=== PATIENT | male | born 1975 | race Caucasian/White ===

== ENCOUNTER 2016-07-28 06:29 | Observation (INO) ==
--- NOTE | 2016-07-28 09:14 | Internal Med History&Physical ---
Date of Encounter: 07/28/16 Time of Encounter: 09:10 Assessment and Plan (1) NSTEMI (non-ST elevated myocardial infarction) Current visit: Yes Status: Acute Presented with chest pain. Troponin done at 0.7. EKG no ischemic changes. history of heart attack or stent placement. Status post aspirin, heparin drip and nitroglycerin drip. Cardiology consult, trend troponin strong family h/o , may need cardiac cath. will keep nPO continue asa, BB , monitor BP. (2) HTN (hypertension) Current visit: Yes Status: Acute off BP meds for ~1 yr, he says he was taken off his BP meds by his PCP but restarted 1 mth ago,however he was not able to fill it as it never went through the pharmacy he says will restart BP meds monitor BP> he says at home it was 200s systolic. Qualifiers: Hypertension type: essential hypertension Qualified Code(s): I10 - Essential (primary) hypertension (3) Smoking Current visit: Yes Status: Acute will start nicotine patch encouraged to quit and agrees. Internal Medicine - H&P: HPI Chief complaint: chest pain Admitted From: Hospital to Hospital Transfer Plans for Post Hospital Care: Home History of present illness: Mr. Jaramillo is a 41 year old male with PMH of HTn not taking his medication for last yr was transferred from [facility] for chest pain that started yesterday. He says the chest pain started once he woke up yesterday and never went away. He describes it as midsternal chest pain initially nonradiating, complains of mild shortness of breath and diaphoresis. Later he said the pain moved up to his neck and his left arm. No relieving factors, no nausea or vomiting. He says he checked his blood pressure yesterday when he started having chest pain and he found that the systolic was in 200. That is when he called 911. He was taken to [facility], troponin there was noted to be 0.7, EKG shows no ischemic changes and from there he was transferred here for possible NSTEMI. He was given aspirin, started on heparin drip and nitroglycerin drip. He says the chest pain got better once the started nitroglycerin drip at [facility], however to drip was stopped during the transfer. His family history is positive for heart attack in his father and his father's brother. Denies any history of heart attacks or stent placement in the past. Past Med Surg Social Fam HX - Past Medical History Medical history: arthritis, hypertension Psychiatric history: ADHD, bipolar - Social History Smoking Status: Current every day smoker Alcohol use: none Drug use: none Internal Medicine - H&P: Meds Albuterol Sulfate [Albuterol Inhaler] 2 puff IH Q4HR PRN 07/18/15 [History] Atenolol [Tenormin] 50 mg PO DAILY 07/18/15 [History] Dextroamphetamine/Amphetamine [Adderall 20 mg Tablet] 20 mg PO QPM 07/18/15 [ History] Dextroamphetamine/Amphetamine [Adderall 20 mg Tablet] 40 mg PO QAM 07/18/15 [ History] FLUoxetine HCl [PROzac] 40 mg PO DAILY 07/18/15 [History] Gabapentin [Neurontin] 1,200 mg PO BID 07/18/15 [History] HYDROcodone/Acet 10/325 mg [[place] 10-325 mg] 1 tab PO Q6HR PRN 07/18/15 [History ] [place] Carbonate ER [Lithobid] 600 mg PO HS 07/18/15 [History] Pantoprazole Sodium [Protonix] 40 mg PO DAILY 07/18/15 [History] Promethazine [Phenergan] 25 mg PO Q8H PRN 07/18/15 [History] Ranitidine HCl [Zantac] 150 mg PO BID 07/18/15 [History] Sucralfate [Carafate] 1 gm PO QID 07/18/15 [History] Tamsulosin [Flomax] 0.4 mg PO DAILY 07/18/15 [History] Trazodone HCl [TraZODone] 100 mg PO HS 07/18/15 [History] diazePAM [Valium] 10 mg PO TID PRN 07/18/15 [History] Allergies fluconazole [From Diflucan] Allergy (Unverified 04/23/15 12:49) Hives valsartan Allergy (Unverified 04/23/15 12:49) Dizziness All Systems PM: A 10-system review of systems was performed and is negative for pertinent findings except as documented above in the HPI. - Constitutional Constitutional: no chills, no fever(s), no night sweats - EENT Eyes: no change in vision, no discharge, no pain, no photophobia Ears: no ear discharge, no ear pain, no tinnitus Nose, mouth and throat: no dysphagia, no nasal discharge, no neck pain, no sore throat - Cardiovascular Cardiovascular ROS IM: chest pain, diaphoresis - Respiratory Respiratory: no cough, no dyspnea, no wheezing, no excessive phlegm production - Gastrointestinal Gastrointestinal: no abdominal pain, no diarrhea, no hematemesis, no hematochezia, no melena, no nausea, no vomiting - Musculoskeletal Musculoskeletal ROS IM: no numbness, no tingling - Constitutional General appearance: Present: A&O X 3, no acute distress Exam: Neck supple Chest bilaterally clear, no added sounds. CVS S1-S2, no murmurs rubs or gallops. Abdomen soft, nontender, pulse sounds are present. Extremities no edema. Neuro alert awake and oriented 3, no focal neuro deficits. Skin dry, no rashes. - Head Head exam: Present: atraumatic, normocephalic - Eye Eye exam: Present: PERRL, conjuntiva pink, sclera anicteric Pupils: Present: PERRL - Neck Neck exam general surgery: Present: supple, trachea midline. Absent: lymphadenopathy - Respiratory Respiratory exam: Present: CTAB. Absent: accessory muscle use, rales, rhonchi, wheezes - Cardiovascular Cardiovascular exam: Present: RRR, +S1, +S2. Absent: diastolic murmur, gallop, rubs, systolic murmur - GI/Abdominal GI/Abdominal exam: Present: normal bowel sounds, soft, no peritoneal signs. Absent: distended, tenderness - Extremities Exam Extremities exam: Present: warm, radial pulses palpable and symetrical. Absent : calf tenderness, cyanotic, pedal edema - Neurological Exam Neurological exam: Present: CN II-XII intact, oriented X3, no focal deficits. Absent: pronater drift, facial droop, speech deficit - Skin Skin exam: Present: dry, intact
[2016-07-28] MEDS ORDERED: Nitroglycerin 25 MG/250 ML INFUS..BTL IVC SCH (09:15)
[2016-07-28] MEDS ORDERED: Heparin 25,000 UNIT/500 ML D5W 25,000 UNIT/500 ML MLS IVC SCH (09:15)
[2016-07-28 09:34] LABS: Hematocrit 50.3 % (37.5-50.1); Mean Corpuscular HGB Conc 31.8 g/dL (31.6-35.5); Mean Corpuscular Volume 91.3 fL (83.0-100.0); Mean Platelet Volume 10.7 fL (9.4-12.4); Platelet Count 179 K/mcL (140-400); Red Blood Count 5.51 M/mcL (4.19-5.50); Red Cell Distribution Width 14.4 % (11.5-14.5)
[2016-07-28 09:40] LABS: INR 1.1
[2016-07-28 10:01] LABS: Activated Partial Thrombo Time 40.9 Seconds (26.0-36.0)
[2016-07-28] MEDS ORDERED: *HR* Morphine 2 MG/ML SYRINGE IVP PRN (10:23)
[2016-07-28] MEDS ORDERED: *HR* Heparin 5,000 UNIT/ML VIAL IVP PRN ×2 (10:25)
[2016-07-28] MEDS ORDERED: *HR* Heparin 10,000 UNIT/10 ML VIAL ONE (10:41)
[2016-07-28] MEDS ORDERED: 0.9 % Sodium Chloride 1,000 ML ONE ×2 (10:41→11:07)
[2016-07-28] MEDS ORDERED: Heparin 1,000 UNITS/500 mL NS 500 ML ONE (10:41)
[2016-07-28] MEDS ORDERED: Nitroglycerin 1,000 MCG/10 ML VIAL IV ONE (10:41)
--- NOTE | 2016-07-28 10:55 | Pre-Sedation Evaluation ---
Pre-sedation evaluation - Pre-sedation checklist Date of procedure: 07/28/16 Procedure: [facility] Recent Vitals: Last Vital Signs Temp 98.2 F 07/28/16 09:02 Pulse 62 07/28/16 09:02 Resp 18 07/28/16 09:02 BP 156/98 07/28/16 09:02 Pulse Ox 97 07/28/16 09:02 H&P (including ROS) documented in medical record: Yes Previous reaction to sedatives/anesthetics: No Dietary Status: NPO after Midnight Airway Assessment: Patient can open mouth completely, TMJ function normal, Micrognathia (under-bite, receding chin) absent, Neck with adequate range of motion Dentition: No loose teeth or bridges Possible difficult airway: Yes If Yes;: Morbid obesity ASA Classification *see protocol: CLASS II-Mild systemic disease Plan of Care: Pt appropriate candidate for procedure/moderate/conscious sedation , Risks/benefits of procedure/sedation discussed w/ patient/family
[2016-07-28] MEDS ORDERED: *HR* FentaNYL (PF) 100 MCG/2 ML VIAL ONE (11:06)
[2016-07-28] MEDS ORDERED: *HR* Midazolam HCl 2 MG/2 ML VIAL ONE ×2 (11:06→11:26)
[2016-07-28] MEDS ORDERED: *HR* Bivalirudin 250 MG VIAL IVC ONE ×2 (11:34→11:43)
[2016-07-28] MEDS ORDERED: *HR* Ticagrelor 90 MG TABLET ONE (11:52)
--- NOTE | 2016-07-28 12:13 | Cardiology Consult Note ---
Date of Encounter: 07/28/16 Time of Encounter: 10:00 Assessment and Plan (1) NSTEMI (non-ST elevated myocardial infarction) Current Visit: Yes Status: Acute Per cardiology: -No known history of CAD. -Troponin at [place] 0.745. -ECG with no ischemic changes. -Having active chest pain rates 7/10. States mid-sternal radiating to left arm. -On heparin drip and nitro drip. -Given asa and nitro per EMS. -PLan for urgent LHC. Discussed risks versus benefits of LHC. Patient states understanding and agrees with LHC. DIscussed and reviewed with Dr.Jennifer Johnston and . OF note, hemoglobin and creatinine within normal limits at [place]. -Will start asa tomorrow. -Will starts statin and beta tanisha. -Will order echocardiogram. -Further recommendations pending LHC and echo. (2) Hyperlipidemia Current Visit: Yes Status: Chronic Per cardiology: -REcent lipid panel and LFTS drawn by PCP. -Triglycerides 109, LDL 140, cholesterol 197, HDL 35 from 06/2016. -Pateint states not on any lipid lowering agents. -Of note AST and SKILLED NURSING within normal limits from 06/2016. -Will start atorvastatin. Qualifiers: Hyperlipidemia type: mixed hyperlipidemia Qualified Code(s): E78.2 - Mixed hyperlipidemia (3) HTN (hypertension) Current Visit: Yes Status: Chronic Per cardiology: -KNown history of HTN. -Atenolol started per primary service. -Patient states he no longer takes medications at home for HTN. -Will switch atenolol to carvedilol. -Will continue to monitor. -Can consider further titration of anti-hypertensives. Qualifiers: Hypertension type: essential hypertension Qualified Code(s): I10 - Essential (primary) hypertension (4) Smoking Current Visit: Yes Status: Chronic Per cardiology: -KNown history of tobacco abuse. -States has smoked 0.5 ppd for 25 years. -I spent 3-5 minutes reviewing smoking cessation education with patient. Discussion w patient/family: The assessment and plan as outlined above was discussed with the patient and/or family members who expressed understanding and agreement. All questions were answered. Thank you for involving us in the care of your patient. Please call with any questions. Discussed and reviewed with Dr.Jennifer Johnston and . History of Present Illness Consult date: 07/28/16 Requesting physician: Yeny Daniel Consult reason: NSTEMI Chief complaint: chest pain History of present illness: Mr. Jaramillo is a 41 year old male with a relevant past medical history of HTN, however states not currently on anti-hypertensives, bipolar disorder. Patient report family history of CAD with father dying at age 49 from [place]. Patient reports yesterday he was walking down his stair, when he had midsternal chest pain. Patient states it radiated down left arm. Patient denies aggervating factors. Patient states pain was relieved with nitro when he presented to [facility]. Patient states he did not present sooner, since he thought it was indigestion. Patient states he is having active chest pain, rates 7/10. States is midsternal and radiating to left arm. Troponin at [place] noted to be 0.745. Patient currently on nitro and heparin drip. Past Med Surg Social Fam HX - Past Medical History Attestation: Yes The following information was validated with the patient. Source: patient, old records reviewed, obtained from family Medical history: arthritis, hypertension Psychiatric history: ADHD, bipolar - Social History Smoking Status: Current every day smoker Alcohol use: none Drug use: none Medications and Allergies Albuterol Sulfate [Albuterol Inhaler] 2 puff IH Q4HR PRN 07/18/15 [History] FLUoxetine HCl [PROzac] 40 mg PO DAILY 07/18/15 [History] Gabapentin [Neurontin] 1,200 mg PO TID 07/18/15 [History] HYDROcodone/Acet 10/325 mg [[place] 10-325 mg] 1 tab PO Q6HR PRN 07/18/15 [History ] [place] Carbonate ER [Lithobid] 600 mg PO BID 07/18/15 [History] Pantoprazole Sodium [Protonix] 40 mg PO DAILY 07/18/15 [History] Ranitidine HCl [Zantac] 150 mg PO BID 07/18/15 [History] Sucralfate [Carafate] 1 gm PO QID 07/18/15 [History] Tamsulosin [Flomax] 0.4 mg PO DAILY 07/18/15 [History] Trazodone HCl [TraZODone] 200 mg PO HS 07/18/15 [History] Nicotine Patch [Nicoderm] 21 mg TD DAILY 07/28/16 [History] Allergies fluconazole [From Diflucan] Allergy (Unverified 04/23/15 12:49) Hives valsartan Allergy (Unverified 04/23/15 12:49) Dizziness All Systems Review: A 10-system review of systems was performed and is negative for pertinent findings except as documented above in the HPI. - Cardiovascular Cardiovascular: as per HPI, chest pain with exertion Physical Examination Vital Signs, Last 4 Hours Temp Pulse Resp BP Pulse Ox 07/28/16 09:02 98.2 F 62 18 156/98 97 General: Conversant, No Apparent Distress HEENT: Atraumatic, Normocephaly, Mucus Membranes Moist Neck: No JVD, Normal carotid pulses Cardiac: Reg Rate and Rhythm, Normal S1 and S2, No Murmur Lungs: Normal Breath Sounds, No Wheeze, Rales, Rhonchi Neuro: Alert and responsive, No focal deficits noted Abdomen: Soft, Non-Tender Skin: No rashes noted on visualized skin Musculoskeletal: Other (Chest wall tenderness noted with palpation. ) Extremities: No Clubbing, No Cyanosis, No Edema, Normal Pulses Results 07/28/16 09:26 Lab Results Active Medications Acetaminophen (Tylenol) 650 mg PO Q6HR PRN PRN Reason: Mild Pain Stop: 01/27/17 12:15 Aspirin (Aspirin) 81 mg PO DAILY [facility] Stop: 01/28/17 09:01 Atorvastatin Calcium (Lipitor) 80 mg PO HS [facility] Stop: 01/27/17 21:01 Carvedilol (Coreg) 6.25 mg PO BIDWM ANETA PRN Reason: Protocol Stop: 01/27/17 17:01 Clopidogrel Bisulfate (Plavix) 75 mg PO DAILY [facility] Stop: 01/28/17 09:01 Sodium Chloride (0.9 % Sodium Chloride) 1,000 mls @ 100 mls/hr IVC .Q10H ANETA Stop: 07/28/16 16:15 Rosalie Carbonate (Lithobid) 600 mg PO HS [facility] Stop: 01/27/17 21:01 Morphine Sulfate (Morphine Sulfate) 2 mg IVP Q4HR PRN PRN Reason: Chest Pain Stop: 01/27/17 10:24 Nicotine (Nicoderm) 14 mg TD DAILY [facility] PRN Reason: Protocol Stop: 01/27/17 09:16 Nitroglycerin (Nitroglycerin) 0.4 mg SL Q5MIN PRN PRN Reason: Chest Pain Stop: 01/27/17 12:15 Omeprazole (Prilosec) 20 mg PO DAILY [facility] Stop: 01/28/17 09:01 Ondansetron HCl (Zofran) 4 mg IVP Q6HR PRN; Protocol PRN Reason: Nausea And Vomiting Stop: 01/27/17 12:15 Sucralfate (Carafate) 1 gm PO QID ANETA Stop: 01/27/17 13:01 Tamsulosin HCl (Flomax) 0.4 mg PO DAILY ANETA PRN Reason: Protocol Stop: 01/28/17 09:01 Trazodone HCl (Trazodone) 100 mg PO HS [facility] Stop: 01/27/17 21:01 Laboratory Tests 07/28/16 07/28/16 09:26 09:26 WBC 11.5 H Troponin I 0.99 H* - Imaging and Cardiology Echo: pending Cardiac cath: pending - EKG Interpretation EKG results cardiology: personally reviewed (ECG reviewed with SR.) Consult Discharge Plan - Plan Referrals: Musa Johnston CNP [Advanced Practice Nurse] - (office will call patient at home with follow up appointment, do to office makes their own appointments) Jameel Cornell DO [Primary Care Provider] -
[2016-07-28] MEDS ORDERED: Acetaminophen 325 MG TABLET PO PRN (12:14)
[2016-07-28] MEDS ORDERED: Nitroglycerin 0.4 MG TAB.SUBL SL PRN (12:14)
[2016-07-28] MEDS ORDERED: Ondansetron 4 MG/2 ML VIAL IVP PRN (12:14)
[2016-07-28] MEDS ORDERED: 0.9 % Sodium Chloride 1,000 ML IVC SCH (12:15)
--- NOTE | 2016-07-28 12:26 | Invasive Diagnostic Lab Proc ---
Name: Andrew Jaramillo Date of Study: 07/28/2016 Date: 1975 Ht: 70.1in Medical Record#: [id number] Age: 41 Wt: 279.99lb Gender: Male BSA: 2.41 Order #: [id number] BMI: 40.08 Physicians Procedure Physician: Ksenia Johnston MD, [facility] Referring MD: Referring MD: Staff Name Position Time In Rena Apple RN Monitor 11:09 AM Renetta Steele RN Multigraph Operator 11:09 AM Miranda Hudson RN Monitor 11:09 AM Jackie Hill RT (R) Scrub 11:09 AM Indications Indication Non-Stemi Procedures Performed Procedure L HRT ARTERY/VENTRICLE ANGIO PRQ CARD TELMA STENT W/ANGIO 1 VSL Pre-Procedure Checklist Informed consent is complete signed and on chart. H\\T\\P is on chart. ID band is on and ID verified with patient. Patient NPO for procedure The procedure was described for the patient and questions were answered. Blood Pressure: 156/98 ECG is on chart. Rhythm: NSR Plan of Care Patient will tolerate the procedure without complications. Adequate level of comfort will be maintained. Hemodynamics will remain stable Patient will recover from procedure without complications. Respiratory function will be maintained. Cardiac rhythm will remain stable. Patient temperature will be maintained. Patient and/or family have verbalized understanding of the procedure. Patient Education Chief Complaint/Reason for Test: Cardiac Cath Developmental Category: Adult (18-64 years) Developmentally Appropriate for Age: Yes Learning Barriers: None Education Needs: Procedure Education Method: Verbal Information Taught: Cardiac Cath Educational Evaluation: Able to repeat information Intravenous Access Time IV Size Location DC'd Fluid/Drip Rate Units RN 11:11 AM 20g 1 1/4" Patent On Arrival Lt Wrist 11:11 AM 20g 1 1/4" Patent On Arrival Lt Arm 0.9NaCl 25 ml/hr Renetta Steele RN Allergies fluconazole valsartan Vital Signs Time BP (mmHg) HR (bpm) O2 Sat. RR (bpm) LOC 11:12 AM 156 / 98 62 97 % 18 5 = Fully awake and oriented or at pre-proc level 11:16 AM / % 5 = Fully awake and oriented or at pre-proc level 11:22 AM / % 4 = Oriented but drowsy 11:22 AM / % 4 = Oriented but drowsy 11:37 AM / % 4 = Oriented but drowsy 11:14 AM 147 / 100 66 98 % 17 11:18 AM 153 / 98 69 98 % 24 11:23 AM 157 / 97 67 97 % 25 11:28 AM 142 / 103 68 96 % 23 11:33 AM 155 / 98 83 96 % 17 11:38 AM 155 / 90 69 96 % 11:43 AM 144 / 93 67 96 % 14 11:49 AM 145 / 93 71 95 % 11:53 AM 137 / 82 70 96 % 20 11:59 AM 127 / 70 67 95 % 19 Procedural Medications Time Medication Dose Units Method Given By 11:16 AM Oxygen 2 L/min nasal cannula Renetta Steele RN 11:16 AM Versed 2 mg Intravenous Renetta Steele RN 11:16 AM Fentanyl 50 mcg Intravenous Renetta Steele RN 11:22 AM Benadryl 25 mg Intravenous Renetta Steele RN 11:27 AM Versed 1 mg Intravenous Renetta Steele RN 11:27 AM Fentanyl 25 mcg Intravenous Renetta Steele RN 11:29 AM Lidocaine 2% 19 ml Subcutaneous Ksenia Johnston MD, FACC 11:38 AM Benadryl 25 mg Intravenous Renetta Steele RN 11:38 AM Angiomax 0.75mg/kg bolus: 19 ml Intravenous Renetta Steele RN 11:38 AM Angiomax 1.75mg/kg/hr: 44.5 ml/hr Intravenous Renetta Steele RN 11:50 AM Nitroglycerin 200 mcg Intracoronary Ksenia Johnston MD, FACC 11:57 AM Nitroglycerin 200 mcg Intracoronary Ksenia Johnston MD, FACC 11:57 AM Nitroglycerin 200 mcg Intracoronary Ksenia Johnston MD, FACC 12:01 PM Brilinta 180 mg Orally Renetta Steele RN ASA Classification: CLASS II- Mild systemic disease (i.e. well-controlled diabetes, hypertension, asthma, cigarette smoking) Shanique Score Preprocedure Postprocedure Activity 2- Moves 4 extremities sustained head lift Activity 2- Moves 4 extremities sustained head lift Circulation 2- SBP +/= 20 points of pre-anesthetic level Circulation 2- SBP +/= 20 points of pre-anesthetic level Consciousness 2- Awake and alert oriented x 3 Consciousness 2- Awake and alert oriented x 3 O2 Saturation 2- Able to maintain O2 satruation of 92% on room air O2 Saturation 2- Able to maintain O2 satruation of 92% on room air Respiratory 2- Able to deep breathe and cough well Respiratory 2- Able to deep breathe and cough well Total Score 10 Total Score 10 Contrast Agent: Isovue Diagnostic Contrast: 208 ml Total Contrast: 208 ml Fluoro Dose: 1766 mGy Procedure Log Time Note Enter By 10:53 AM CathStat 11:08 AM Pt arrived to cardiovascular lab director 2 at 11:08 [facility] 11:08 AM Physician arrived :08 [facility] 11:08 AM ASA Class CLASS II- Mild systemic disease (i.e. well-controlled diabetes, hypertension, asthma, cigarette smoking) [facility] :08 AM Meet and greet completed [facility] 11:08 AM Sign in performed according to hospital policy. [facility] :08 Procedure start 11:08 [facility] :08 AM Patient charges- Angio tray pack, Navilyst 3mm J, Pulse Oximetry and ACIST tubing and transducer [facility] :08 AM Case Delayed No [facility] 11:09 AM Rena Apple RN Position: Monitor Time in: : [facility] 11:09 AM Renetta Steele RN Position: Multigraph Operator Time in: : [facility] 11:09 AM Miranda Hudson RN Position: Monitor Time in: : [facility] 11:09 AM Jackie Hill RT (R) Position: Scrub Time in: 11:09 [facility] 11:12 AM Vitals capture started with the following parameters, Patient=Adult, Interval=5 min, Initial Sobojoha=189 mmHg, Deflation Rate=5 mmHg, Cuff placed on Right Arm 11:13 AM Recorded ECG: HR=63 Condition=Condition 1 11:14 AM HR=66 bpm, BPQS=592/100 mmhg, SpO2=98.0 %, Resp=17 B/min, Comment=NSR 11:16 AM Hair removed from procedure site in procedure lab using clippers. Bilateral groin prepped with Chloraprep by Miranda Hudson RN, safety strap applied then patient was draped. Skin intact. [facility] :16 Time: 11:16 Patient comfortable and pain free: Yes [facility] :16 AM Time: :16LOC: 5 = Fully awake and oriented or at pre-proc level [facility] 11:16 AM Clinical Presentation: Non-STEMI [facility] 11:16 AM Time: 11:16 Oxygen on at 2 L/min per nasal cannula by Renetta Steele RN [facility] 11:16 AM Time: 11:16 Versed 2 mg Intravenous Given by Renetta Steele RN [facility] 11:16 AM Time: 11:16 Fentanyl 50 mcg Intravenous Given by Renetta Steele RN [facility] 11:18 AM HR=69 bpm, BTGV=169/98 mmhg, SpO2=98.0 %, Resp=24 B/min, Comment=NSR 11: AM Time: : Patient comfortable and pain free: Yes scoates 11: AM Time: :LOC: 4 = Oriented but drowsy scoates : AM Time: Benadryl 25 mg Intravenous Given by Renetta Steele RN scoatevasiliy 11: AM HR=67 bpm, UAAP=712/97 mmhg, SpO2=97.0 %, Resp=25 B/min, Comment=NSR 11 AM Time out performed according to hospital policy scoates 11: AM Pressure channel 1 zeroed. 11: AM Time: : Versed 1 mg Intravenous Given by Renetta Steele RNoatevasiliy : AM Time: : Fentanyl 25 mcg Intravenous Given by Renetta Steele RN scoateavsiliy 11: AM HR=68 bpm, HSFB=807/103 mmhg, SpO2=96.0 %, Resp=23 B/min, Comment=NSR 11 AM Time: 19 ml Lidocaine 2% to right groin Subcutaneous Given by Ksenia Johnston MD, [facility] scoates 11:29 AM Access obtained by percutaneous puncture. 5Fr 10cm Terumo Birney sheath placed in right Femoral artery. [id number] scoates 11:29 AM 5Fr FL 4 catheter inserted over the wire DN scoates 11:30 AM Recorded Pressure: Ao, HR=72, Condition=Condition 1 (Aorta) Ao 149/111/130 11:30 AM LCA angiography performed in multiple views. scoates 11:32 AM Catheter removed scoates 11:32 AM 5Fr FR 4 catheter inserted over the wire DN scoates 11:33 AM HR=83 bpm, KHOU=421/98 mmhg, SpO2=96.0 %, Resp=17 B/min, Comment=NSR 11:33 AM RCA angiography performed in multiple views. scoates 11:33 AM Recorded Pressure: Ao, HR=82, Condition=Condition 1 (Aorta) Ao 159/126/143 11:34 AM Catheter removed scoates 11:34 AM Coronary Dominance: right scoates 11:35 AM 5Fr Pigtail catheter inserted over the wire DNC scoates 11:35 AM Catheter selectively placed in left ventricle scoates 11:35 AM Bolus angiogram of left Ventricle complete: 8 ml/sec for a total of 24 mls scoates 11:36 AM Pressure channel 1 zeroed. 11:36 AM Recorded Pressure: LV, HR=77, Condition=Condition 1 (Left Ventricle) LV 126/20/21 11:36 AM Recorded Pressure: LV, Ao, HR=76, Condition=Condition 1 (Left Ventricle) LV 130/39/45, (Aorta) Ao 137/102/120 11:37 AM Time: 11:22LOC: 4 = Oriented but drowsy scoates 11:37 AM Time: 11:22 Patient comfortable and pain free: Yes scoates 11:38 AM Time: 11:38 Benadryl 25 mg Intravenous Given by Renetta Steele RN scoates 11:38 AM PCI Status Urgent scoates 11:38 AM PCI Indication: PCI for high risk Non-STEMI or unstable angina scoates 11:38 AM Sheath exchanged for a 6 Fr 11 cm Cordis Nathalia sheath [id number] scoates 11:38 AM HR=69 bpm, FQIC=499/90 mmhg, SpO2=96.0 %, Comment=NSR 11:38 AM Time: 11:38 Angiomax 0.75mg/kg bolus: 19 ml Intravenous Given by Renetta Steele RN Blandon pump scoates 11:39 AM Time: 11:38 Angiomax 1.75mg/kg/hr: 44.5 ml/hr Intravenous Given by Renetta Steele RN Blandon pump scoates 11:39 AM Lesion found in Ramus. Pre Stenosis: 100 Pre ESTEFANÍA Flow: 0: No Flow/No perfusion scoates 11:39 AM 6Fr XB LAD 3.5 cordis guide catheter was used to cannulate the PCI vessel successfully. reused? No scoates 11:40 AM .014 Prowater 180cm guide wire across target lesion- successful. reused? No Positioned in the Ramus scoates 11:40 AM Recorded Pressure: Ao, HR=71, Condition=Condition 1 (Aorta) Ao 153/89/117 11:40 AM .014 PT Graphix 182cm guide wire across target lesion- successful. reused? No positioned in the LAD scoates 11:43 AM Recorded Pressure: Ao, HR=68, Condition=Condition 1 (Aorta) Ao 146/91/117 11:43 AM HR=67 bpm, OAWW=325/93 mmhg, SpO2=96.0 %, Resp=14 B/min, Comment=NSR 11:44 AM 2.0 mm x 15 mm Emerge Monorail balloon across target lesion- successful. reused? No scoates 11:45 AM Ramus with 100% stenosis. If graft is supplying this area, 0 % stenosis scoates 11:48 AM Recorded Pressure: Ao, HR=67, Condition=Condition 1 (Aorta) Ao 139/100/120 11:48 AM Balloon inflated @ 12 kacie for 10 seconds scoates 11:49 AM HR=71 bpm, FUJY=647/93 mmhg, SpO2=95.0 %, Comment=NSR 11:49 AM Balloon catheter removed intact. scoates 11:50 AM Time: 11:50 Nitroglycerin 200 mcg Intracoronary Given by Ksenia Johnston MD, FACC scoates 11:52 AM Time: 11:37 Patient comfortable and pain free: Yes scoates 11:52 AM Time: 11:37LOC: 4 = Oriented but drowsy scoates 11:53 AM 2.25mm x 16mm Synergy drug-eluting stent across target lesion- successful Lot #[id number] scoates 11:53 AM HR=70 bpm, ENRH=836/82 mmhg, SpO2=96.0 %, Resp=20 B/min, Comment=NSR 11:54 AM Recorded Pressure: Ao, HR=67, Condition=Condition 1 (Aorta) Ao 117/91/105 11:54 AM Stent deployed @ 12 kacie for 30 seconds scoates 11:56 AM Guide wire - PT graphix removed intact. scoates 11:57 AM Time: 11:57 Nitroglycerin 200 mcg Intracoronary Given by Ksenia Johnston MD, FACC scoates 11:58 AM Time: 11:57 Nitroglycerin 200 mcg Intracoronary Given by Ksenia Johnston MD, [facility] scoates 11:59 AM HR=67 bpm, GYON=102/70 mmhg, SpO2=95.0 %, Resp=19 B/min, Comment=NSR 11:59 AM Guide wire- prowater removed intact. scoates 11:59 AM Stent delivery system removed intact. scoates 12:00 PM Bolus angiogram of right Femoral complete: 4 ml/sec for a total of 7 mls scoates 12:01 PM Time: 12:01 Brilinta 180 mg Orally Given by Renetta Steele RN scoates 12:03 PM Lesion found in LMCA. Pre Stenosis: 15 Pre ESTEFANÍA Flow: scoates 12:03 PM Lesion found in Proximal LAD. Pre Stenosis: 40 Pre ESTEFANÍA Flow: scoates 12:03 PM Lesion found in Mid LAD. Pre Stenosis: 30 Pre ESTEFANÍA Flow: scoates 12:04 PM Lesion found in Distal LAD. Pre Stenosis: 30 Pre ESTEFANÍA Flow: scoates 12:05 PM Procedure completed at 12:05 scoates 12:05 PM Sign out completed: Radiation Dose 1766 mGy Fluoro Time: 8.6 Isovue 370 - 500ml contrast 208 ml given by Ksenia Johnston MD, [facility]. Complications: NoneCardiac Rehab Consult needed: YesConfirmed administered medications: Yes scoates 12:06 PM Isovue 370 - 500ml,1 Bottle(s) used. scoates 12:06 PM Sheath left in place to be pulled on floor/holding area scoates 12:06 PM Post ECG NSR scoates 12:06 PM Post Blood Pressure 136/82 scoates 12:07 PM 12:07 Post Pulses Bilateral DP \\T\\ PT 2+ scoates 12:07 PM Information taught Cardiac Cath and PCI scoates 12:07 PM Education needs Procedure, Plan of Care, and Responsibilities of Patient in Care scoates 12:07 PM Learning barriers :None scoates 12:07 PM Education Methods Verbal scoates 12:07 PM Education evaluation Able to repeat information scoates 12:07 PM Site status No bleeding/hematoma - Rt Groin as reported by Sites, Jackie RT (R) at 12:07 scoates 12:07 PM Opsite applied scoates 12:07 PM Plavix, Effient or Brilinta given Yes scoates 12:07 PM Delay to floor No scoates 12:07 PM Patient out of room: 12:07 scoates 12:07 PM Family placed in consult room. scoates 12:08 PM Complications: None scoates 12:08 PM Fluoro Time: 8.6 scoates 12:08 PM Isovue 370 - 200ml contrast 208 ml given by Ksenia Johnston MD, [facility]. scoates 12:08 PM Radiation Dose 1766 mGy scoates 12:13 PM Lesion found in Proximal RCA. Pre Stenosis: 30 Pre ESTEFANÍA Flow: scoates 12:13 PM Lesion found in Mid RCA. Pre Stenosis: 30 Pre ESTEFANÍA Flow: scoates 12:13 PM Lesion found in Proximal Circumflex. Pre Stenosis: 30 Pre ESTEFANÍA Flow: scoates 12:14 PM Proximal Left Anterior Descending Coronary Artery with 40% stenosis. If graft is supplying this territory, 0 % stenosis. scoates 12:16 PM Mid/Distal Left Anterior Descending Coronary Artery and diagonal branches with 30% stenosis. If graft is supplying this area, 0 % stenosis scoates 12:16 PM Circumflex, Obtuse Marginal, Left Posterior Descending, and Left Posterolateral Coronary Arteries with 30 % stenosis. If graft is supplying this area, 0 % stenosis scoates 12:16 PM Right Coronary, Right Posterior Descending Arteries with Right Posterolateral and Acute Marginal branches with 30 % stenosis. If graft is supplying this area, 0 % stenosis scoates 12:17 PM Report given to Memory RN Pt taken to 2N Room #12. 12:16 scoates 12:20 PM Lesion found in 1st Diagonal. Pre Stenosis: 30 Pre ESTEFANÍA Flow: scoates Complications Complication None None Hemodynamics Pressures Site Systolic/A Wave Diastolic/V Wave Mean AO 149 111 130 AO 159 126 143 LV 126 20 21 LV 130 39 45 AO 137 102 120 AO 153 89 117 AO 146 91 117 AO 139 100 120 AO 117 91 105 Post Procedure Information Blood Pressure: 136/82 mmHg Rhythm: NSR Post procedural instructions were given Closure Device Time Device Success/Fail 07/28/2016 12:08:00 PM Manual Compression - sheath to be pulled on 2N when appropriate Successful Site Checks Time Location Status Staff Sheath In? Note 12:07 PM Rt Groin No bleeding/hematoma Sites, Jackie RT (R) Pulses Time Site Pre-Procedure Post-Procedure Note 07/28/2016 11:12:00 AM Bilateral DP \\T\\ PT 2+ 07/28/2016 11:12:00 AM Bilateral radial 2+ 12:07:00 PM Bilateral DP \\T\\ PT 2+ Updated by Miranda Uriarte RN on 07/28/2016 12:21:25 PM electronically signed on 07/28/2016 12:21:56 PM with status of Final
[2016-07-28] MEDS: Sucralfate 1 GM TABLET PO SCH ×3 (13:00→21:46)
--- NOTE | 2016-07-28 15:14 | Invasive Diagnostic Lab ---
Name: Andrew Jaramillo Date of Study: 07/28/2016 Date: 1975 Ht: 178.0 cm /70.1 in Medical Record#: [id number] Age: 41 Wt: 127. kg / 279.99 lb Account/Order#: [id number] Gender: Male BSA: 2.41 Order #: [id number] Fluoro Dose: 1766 mGy BMI: 40.08 Procedure Physician: Ksenia Johnston MD, [facility] Referring MD: Referring MD: Procedures Performed: LEFT HEART CATH Stent w/ PTCA Single Major Vessel Indications: Non-Stemi Impressions: There is severe one vessel coronary artery disease. The left ventricle is normal and has normal contractility EF 50% Patient had successful PTCA/Drug-Eluting Stent placement in the proximal Ramus. Recommendations: Dual antiplatelet therapy. Optimal medical therapy of patient's disease. Aggressive risk factor modification. Patient being referred for cardiac rehab. History/Risk Factors: arthritis bipolar Hypertension Procedure Access obtained in the right Femoral artery by percutaneous puncture Patient had successful PTCA/Drug-Eluting Stent placement in the proximal Ramus. Complications: None, None Contrast: Isovue 208ml Closure Device: Manual Compression Hemodynamics: Pressures Site Systolic/ A Wave Diastolic/ V Wave End Diastolic/ Mean HR AO 149 111 130 72 AO 159 126 143 82 LV 126 20 21 77 LV 130 39 45 76 AO 137 102 120 76 AO 153 89 117 71 AO 146 91 117 68 AO 139 100 120 67 AO 117 91 105 67 LV Ventriculography Ejection Method: LV Gram Ejection Fraction: 50% Wall Motion: WILCOX Anterobasal Normal Anterolateral Moderate Hypokinesis Apical: Normal Inferoapical Normal Inferobasal Normal Coronary Dominance: right Lesion Findings/Interventions * Left Main Coronary Artery There is a 15% stenosis in the LMCA. * Left Anterior Descending There is a 40% stenosis in the Proximal LAD. There is a 30% stenosis in the Mid LAD. There is a 30% stenosis in the Distal LAD. There is a 30% stenosis in the 1st Diagonal. * Circumflex There is a 30% stenosis in the Proximal Circumflex. * Ramus There is a 16 mm long, 100% stenosis in the Ramus. The lesion has a ESTEFANÍA flow of 0 and has thrombus present. An intervention was performed on the Ramus with a final stenosis of 0%. There were no lesion complications. The final ESTEFANÍA flow was 3. * Right Coronary Artery There is a 30% stenosis in the Proximal RCA. There is a 30% stenosis in the Mid RCA. Interventional Device(s) Vessel Segment Type Name Diameter (mm) Length (mm) Ramus Drug Eluting Stent Synergy 2.25 16 Ramus Balloon Emerge Monorail 2 15 Updated by Ksenia Johnston MD, FACC on 07/28/2016 3:08:08 PM Ksenia Johnston MD, FACC electronically signed on 07/28/2016 3:08:42 PM with status of Final
[2016-07-28] MEDS: Nicotine 14 MG PATCH.TD24 TD SCH (16:09)
[2016-07-28] MEDS: Gabapentin 400 MG CAPSULE PO SCH ×2 (18:12→21:51)
--- NOTE | 2016-07-28 18:21 | Electrocardiograph Report ---
[address] [address] Test Date: 2016-07-28 Pat Name: Andrew Jaramillo Department: 110 Room: 2N12 Gender: Sommelier: MADDY : 1975 Requested By: Marina Del Rio Order Number: [id number] Reading MD: Vikki Galvez Measurements Intervals Rogers Rate: 60 P: 46 NC: 181 QRS: 58 QRSD: 97 T: 77 QT: 421 QTc: 422 Interpretive Statements SINUS RHYTHM Electronically Signed On 07-28-2016 18:20:00 EDT by Vikki Galvez
[2016-07-28] MEDS ORDERED: traZODone 50 MG TABLET PO SCH (21:00)
[2016-07-28] MEDS ORDERED: Lithium Carbonate ER 300 MG TABLET.ER PO SCH (21:00)
[2016-07-29 05:16] LABS: Basophils % 0.3 %; Eosinophils # 0.6 K/mcL (0.0-0.6); Eosinophils % 6.8 %; Hematocrit 45.1 % (37.5-50.1); Immature Granulocytes % 0.2 % (0-4); Lymphocytes # 1.7 K/mcL (0.6-4.6); Lymphocytes % 19.8 %; Mean Corpuscular HGB Conc 31.7 g/dL (31.6-35.5); Mean Corpuscular Hemoglobin 28.8 pg (28.0-33.3); Mean Corpuscular Volume 90.9 fL (83.0-100.0); Mean Platelet Volume 10.7 fL (9.4-12.4); Monocytes # 0.7 K/mcL (0.0-1.3); Monocytes % 8.3 %; Neutrophils # 5.6 K/mcL (1.6-8.9); Platelet Count 151 K/mcL (140-400); Red Blood Count 4.96 M/mcL (4.19-5.50); Red Cell Distribution Width 14.5 % (11.5-14.5); Segmented Neutrophils % 64.6 %
[2016-07-29 05:17] LABS: Hemoglobin 14.3 g/dL (12.9-16.9)
[2016-07-29 05:39] LABS: BUN/Creatinine Ratio 11 (6-26); Blood Urea Nitrogen 12 mg/dL (8-26); Calcium 9.2 mg/dL (8.6-10.8); Carbon Dioxide 25 mEq/L (19-29); Chloride 108 mEq/L (98-109); Glucose 95 mg/dL (70-99); Osmolality,Calculated 286 (280-300); Potassium 4.3 mEq/L (3.5-4.5); Sodium 138 mEq/L (136-145); eGFR For African Americans > 60 (> 60); eGFR For Non-African Americans > 60 (> 60)
--- NOTE | 2016-07-29 08:48 | Discharge Summary ---
Date of Encounter: 07/29/16 Time of Encounter: 08:47 - Discharge Diagnosis (1) NSTEMI (non-ST elevated myocardial infarction) Priority: Primary Status: Acute (2) HTN (hypertension) Priority: Secondary Status: Chronic Qualifiers: Hypertension type: essential hypertension Qualified Code(s): I10 - Essential (primary) hypertension (3) Smoking Priority: Secondary Status: Chronic (4) Hyperlipidemia Priority: Secondary Status: Chronic Qualifiers: Hyperlipidemia type: mixed hyperlipidemia Qualified Code(s): E78.2 - Mixed hyperlipidemia (5) Obesity (BMI 30-39.9) Priority: Secondary Status: Chronic - Discharge Medications Prescriptions: Nitroglycerin 0.4 mg SL Q5MIN PRN #10 tab.subl PRN Reason: Chest Pain Aspirin 81 mg PO DAILY #30 tab.chew Atorvastatin Calcium [Lipitor] 80 mg PO HS #30 tab Carvedilol [Coreg] 6.25 mg PO BIDWM #60 tablet Clopidogrel [Plavix] 75 mg PO DAILY #30 tablet Home Medications: Albuterol Sulfate [Albuterol Inhaler] 2 puff IH Q4HR PRN 07/18/15 [History] FLUoxetine HCl [Prozac] 40 mg PO DAILY 07/18/15 [History] Gabapentin [Neurontin] 1,200 mg PO TID 07/18/15 [History] HYDROcodone/Acet 10/325 mg [[place] 10-325 mg] 1 tab PO Q6HR PRN 07/18/15 [History ] [place] Carbonate ER [Lithobid] 600 mg PO BID 07/18/15 [History] Pantoprazole Sodium [Protonix] 40 mg PO DAILY 07/18/15 [History] Sucralfate [Carafate] 1 gm PO QID 07/18/15 [History] Tamsulosin [Flomax] 0.4 mg PO DAILY 07/18/15 [History] Trazodone HCl [TraZODone] 200 mg PO HS 07/18/15 [History] Nicotine Patch [Nicoderm] 21 mg TD DAILY 07/28/16 [History] Acetaminophen [Tylenol] 650 mg PO Q6HR PRN #0 tablet 07/29/16 [Rx] Aspirin 81 mg PO DAILY #30 tab.chew 07/29/16 [Rx] Atorvastatin Calcium [Lipitor] 80 mg PO HS #30 tab 07/29/16 [Rx] Carvedilol [Coreg] 6.25 mg PO BIDWM #60 tablet 07/29/16 [Rx] Clopidogrel [Plavix] 75 mg PO DAILY #30 tablet 07/29/16 [Rx] Nitroglycerin 0.4 mg SL Q5MIN PRN #10 tab.subl 07/29/16 [Rx] Allergies/Adverse Reactions: Allergies fluconazole [From Diflucan] Allergy (Severe, Verified 07/28/16 14:24) Hives valsartan Allergy (Unknown, Verified 07/28/16 14:24) Dizziness Procedures/tests Complete & Pending: Procedures Performed prior 72 hours Category Date Time Status CL Cardiac Catheterization [CL] Routine Brake Repairer Hydraulic 07/28/16 10:41 Completed ECG 12 lead ECG [ECG] Routine Y 07/28/16 13:27 Completed ECG 12 lead ECG [ECG] Stat Y 07/28/16 09:47 Completed ECG 12 lead ECG [ECG] Stat Y 07/28/16 12:13 Completed EV echocardiogram Routine Y 07/28/16 12:32 Completed Date of admission: 07/28/16 08:27 Primary care physician: Adelita Lowry Consults: 07/28/16 09:05 Consult to Cardiology [CONS] Routine Comment: Consulting Provider: Cardiology Anjali Reason for Consult: please evaluate this patient transferred from [place] for chest pain with elevated trop. thank you Call Completed: No 07/28/16 12:15 Consult to Cardiac Rehabilitation-Phase1 [CONS] Routine Comment: Reason for Consult: CAD s/p PCI, nonSTEMI Call Completed: Yes Discharging clinician: Bradley Alonzo Anticipated date of discharge: 07/29/16 - Patient Status Disposition: Home, Self-Care Condition: Fair Functional capacity at discharge: independent ambulation Overall status at discharge: patient is progressing back to baseline - Discharge Instructions Instructions: Nitroglycerin (By mouth), Aspirin (By mouth), Atorvastatin (By mouth), Carvedilol (By mouth), Clopidogrel (By mouth), Myocardial Infarction (DC ), How to Stop Smoking (DC), Chronic Hypertension (DC), Hyperlipidemia (DC) Follow Up With: Musa Johnston HOT WORKER [Advanced Practice Nurse] - (office will call patient at home with follow up appointment, to office makes their own appointments) Aneta,Jameel D, DO [Primary Care Provider] - 07/31/16 1:30 pm Additional Instructions: RISK FACTORS: STOP SMOKING: If you smoke, STOP. Smoking or tobacco use significantly increases your risk of heart disease because nicotine causes the arteries to narrow or constrict. It also causes fats to stick to the artery. Your chances of having a heart attack are greatly increased if you continue to smoke. For more information, call the education line for smoking cessation 5-555-RTGHIPH EAT A LOW FAT/CHOLESTEROL/SODIUM DIET: This diet may help reduce your chances of having a heart attack. LIFTING: Avoid lifting anything more than 10 pounds for 5-7 days Prior to straining, laughing, sneezing and/or coughing, apply manual pressure directly over insertion site. ACTIVITY: You may walk or climb stairs as tolerated You can resume sexual activity as tolerated In general, you are encouraged to engage in a minimum of 30 minutes or more of moderate intensity physical activity, such as brisk walking, daily or at least 3 -4 times weekly BATHING Do not submerge the site into water (bath tub, hot tub, swimming pool) for 1 week. This can be a source for infection into the blood stream. You may shower after 24 hours SITE CARE: After 24 hours, you may remove the dressing and leave the site open to air. Keep the site clean and dry. Clean gently and pat dry. You can expect bruising and tenderness that gradually resolve within a week or two. Return to work as instructed per your physician Resume driving as instructed per physician Keep all scheduled follow up appointments Resume medications as instructed IMPORTANT: If prescribed a Platelet Aggregation Inhibitor such as, Plavix, Brilinta or Effient: Duration of therapy is minimum one year These medications are often used in combination with Aspirin in prevention of future heart attacks Never discontinue unless consult with your General Education Professor STROKE (CVA) Risk factors for a stroke are: Age, cigarette smoking, diabetes, excessive alcohol consumption, family history, high blood pressure, overweight, physical inactivity, prior stroke, heart attack, diagnosis of carotid artery stenosis or other artery disease. Warning signs: Sudden numbness or weakness of the face, arm or leg; especially on one side of the body, sudden confusion, trouble speaking or understanding, sudden trouble seeing in one or both eyes, sudden trouble walking, dizziness, loss of balance or coordination, sudden severe headache with no cause. Call 911 or go to the Emergency Room. CONGESTIVE HEART FAILURE: If you have been diagnosed with Congestive Heart Failure (CHF) and your symptoms return, make an appointment with your physician Weigh yourself daily. Notify your physician if you have a weight gain of two or more pounds in one day or five or more pounds in one week. If you experience any difficulty breathing, please call 911 BLEEDING: Although the risk of bleeding is minimal, it can happen. If you have any bleeding from the site, apply firm pressure above the puncture site for 10-15 minutes. If the bleeding does not stop, continue manual pressure and call 911 Contact your physician if: You develop a fever greater than 101 degrees Fahrenheit Your site becomes reddened or has any drainage You have an increase in pain or burning at the site or if a large knot forms at the site. If you experience chest pain, shortness of breath, dizziness, or extreme tiredness, stop the activity and rest. Please notify your physicians office if you experience any of these symptoms and they are not relieved by rest please call 911! - Diet and Activity Activity: resume usual activities as tolerated Diet: low fat, low cholesterol, low salt diet Interval History: See below Hospital course: Mr. Jaramillo is a 41 year old male with PMH of Bipolr disorder, HLD, Tobacco abuse He is admitted to observation for management of NSTEMI. He presented with 2 days of chest pain, and non-compliance with antihypertensive medications He has no known history of CAD, he had a Troponin peak of 14.34 from 0.99. ECG was NSR, with no ST segment changes. Cardiology was consulted and patient underwent LHC on 07/28/16, with evidence of severe one vessel disease, TELMA to proximal ramus, 15% stenosis left main, 40% proximal LAD, 30% mid LAD, 30% distal LAD, 30% diagonal 1, 30% proximal circumflex, 30% proximal RCA Echo 07/28/16 with LVEF 55-60%, no significant valvular dysfunction, all flores with normal motion. Patient is seen and evaluated this morning, he is asymptomatic, access site for LHC is clean with no bleeding or hematoma, he has no CP, no SOB He is clinically stable for discharge to follow up with cardiology as O-P Patient education done for 6 minutes with emphasis on tobacco cessation (has NRT at home), compliance with dAPT, dietary and lifestyle modification for obesity Plan of care understood as per patient Follow up with PCP and Cardiology Time spent discussing smoking cessation with patient: 3 to 10 minutes (3 minutes spent educating patient on tobacco cessation) - Time Spent with Patient Total time spent providing and/or coordinating discharge services: Less than 30 minutes - Constitutional Vitals: Temp Pulse Resp BP Pulse Ox 98.7 F 7 16 109/66 95 07/29/16 07:55 07/29/16 07:55 07/29/16 07:55 07/29/16 07:55 07/29/16 07:55 General appearance: Present: A&O X 3, pleasant, no acute distress, obese - Head Head exam: Present: atraumatic, normocephalic - Eye Eye exam: Present: PERRL, conjuntiva pink, sclera anicteric Pupils: Present: PERRL - Neck Neck exam general surgery: Present: supple, trachea midline. Absent: lymphadenopathy - Respiratory Respiratory exam: Present: CTAB. Absent: accessory muscle use, rales, rhonchi, wheezes - Cardiovascular Cardiovascular exam: Present: RRR, +S1, +S2. Absent: diastolic murmur, gallop, rubs, systolic murmur - GI/Abdominal GI/Abdominal exam: Present: normal bowel sounds, soft, no peritoneal signs. Absent: distended, tenderness - Additional comments: L groin dressing clean and intact - Extremities Exam Extremities exam: Present: warm, radial pulses palpable and symetrical. Absent : calf tenderness, cyanotic, pedal edema - Neurological Exam Neurological exam: Present: alert, CN II-XII intact, normal gait, oriented X3, no focal deficits. Absent: pronater drift, facial droop, speech deficit - Skin Skin exam: Present: dry, intact
[2016-07-29] MEDS ORDERED: Aspirin 81 MG TAB.CHEW PO SCH (09:00)
--- NOTE | 2016-07-29 09:41 | Cardiology Progress Note ---
Date of Encounter: 07/29/16 Time of Encounter: 08:30 Assessment and Plan (1) NSTEMI (non-ST elevated myocardial infarction) Current Visit: Yes Status: Acute Per cardiology: -No known history of CAD. -Troponin peak 14.34. -ECG with no ischemic changes. -Denies current chest pain. -On asa, statin, beta tanisha, and plavix. -LHC 07/28/16 with 100% ramus with TELMA x1, 15% stenosis left main, 40% proximal LAD, 30% mid LAD, 30% distal LAD, 30% diagonal 1, 30% proximal circumflex, 30% proximal RCA, -Echo 07/28/16 with LVEF 55-60%, no significant valvular dyusfunction, all flores with normal motion. -Heart healthy diet and lifestyle modificcation education given to pateint. -Right groin management education given to patient. Patient states understanding. -Recommend dual anti-platelet therapy uininterrupted for at least 1 year. Patient states understanding and agrees with treatment. -Recommend discharging with nitroglycerin tablets. -Cardiology will sign off and will follow in outpatient setting. Follow up set. (2) Hyperlipidemia Current Visit: Yes Status: Chronic Per cardiology: -REcent lipid panel and LFTS drawn by PCP. -Triglycerides 109, LDL 140, cholesterol 197, HDL 35 from 06/2016. -Pateint states not on any lipid lowering agents. -Of note AST and TEENA within normal limits from 06/2016. -COntinue atorvastatin. -Will continue to monitor in outpatient setting. Qualifiers: Hyperlipidemia type: mixed hyperlipidemia Qualified Code(s): E78.2 - Mixed hyperlipidemia (3) HTN (hypertension) Current Visit: Yes Status: Chronic Per cardiology: -KNown history of HTN. -Most recent BP 100s systolic. -On beta tanisha. -Will continue to monitor. -Can consider further titration of anti-hypertensives in outpatient setting. -Of note, patient is on lithium, careful adding sandy inhibitors. Qualifiers: Hypertension type: essential hypertension Qualified Code(s): I10 - Essential (primary) hypertension (4) Smoking Current Visit: Yes Status: Chronic Per cardiology: -KNown history of tobacco abuse. -States has smoked 0.5 ppd for 25 years. -I spent 3-5 minutes reviewing smoking cessation education with patient. -I strongly encouraged patient to quit smoking. -Patient states he knows he needs to quit. Discussion w patient/family: The assessment and plan as outlined above was discussed with the patient who expressed understanding and agreement. All questions were answered. Thank you for involving us in the care of your patient. Please call with any questions. Discussed and reviewed with Dr.Jennifer Johnston and . Subjective Principal diagnosis: NSTEMI Interval history: Pateint admitted yesterday from outside facility with complaints of chest pain and elevated troponin. Patient underwent LHC yesterday with TELMA x1 to ramus. Patient chest pain free. Denies issues with right groin site . Objective Vital Signs, Last 4 Hours Temp Pulse Resp BP Pulse Ox 07/29/16 07:55 98.7 F 7 16 109/66 95 07/29/16 07:27 73 140/81 94 General: Conversant, No Apparent Distress HEENT: Atraumatic, Normocephaly, Mucus Membranes Moist Neck: No JVD, Normal carotid pulses Cardiac: Reg Rate and Rhythm, Normal S1 and S2, No Murmur Lungs: Normal Breath Sounds, No Wheeze, Rales, Rhonchi Neuro: Alert and responsive, No focal deficits noted Abdomen: Soft, Non-Tender Skin: No rashes noted on visualized skin, Other (Right groin site without hematoma or ecchymosis. ) Musculoskeletal: No Chest Wall Tenderness Extremities: No Clubbing, No Cyanosis, No Edema, Normal Pulses Results 07/29/16 04:52 07/29/16 04:52 Lab Results Active Medications Acetaminophen (Tylenol) 650 mg PO Q6HR PRN PRN Reason: Mild Pain Stop: 01/27/17 12:15 Last Admin: 07/29/16 05:51 Dose: 650 mg Aspirin (Aspirin) 81 mg PO DAILY [facility] Stop: 01/28/17 09:01 Atorvastatin Calcium (Lipitor) 80 mg PO HS [facility] Stop: 01/27/17 21:01 Last Admin: 07/28/16 21:43 Dose: 80 mg Carvedilol (Coreg) 6.25 mg PO BIDWM ANETA PRN Reason: Protocol Stop: 01/27/17 17:01 Last Admin: 07/28/16 18:13 Dose: 6.25 mg Clopidogrel Bisulfate (Plavix) 75 mg PO DAILY [facility] Stop: 01/28/17 09:01 Gabapentin (Neurontin) 1,200 mg PO TID [facility] Stop: 01/27/17 17:31 Last Admin: 07/28/16 21:51 Dose: 1,200 mg [place] Carbonate (Lithobid) 600 mg PO HS [facility] Stop: 01/27/17 21:01 Last Admin: 07/28/16 22:20 Dose: 600 mg Morphine Sulfate (Morphine Sulfate) 2 mg IVP Q4HR PRN PRN Reason: Chest Pain Stop: 01/27/17 10:24 Nicotine (Nicoderm) 14 mg TD DAILY [facility] PRN Reason: Protocol Stop: 01/27/17 09:16 Last Admin: 07/28/16 16:09 Dose: 14 mg Nitroglycerin (Nitroglycerin) 0.4 mg SL Q5MIN PRN PRN Reason: Chest Pain Stop: 01/27/17 12:15 Omeprazole (Prilosec) 20 mg PO DAILY [facility] Stop: 01/28/17 09:01 Ondansetron HCl (Zofran) 4 mg IVP Q6HR PRN; Protocol PRN Reason: Nausea And Vomiting Stop: 01/27/17 12:15 Sucralfate (Carafate) 1 gm PO QID [facility] Stop: 01/27/17 13:01 Last Admin: 07/28/16 21:46 Dose: Not Given Tamsulosin HCl (Flomax) 0.4 mg PO DAILY [facility] PRN Reason: Protocol Stop: 01/28/17 09:01 Trazodone HCl (Trazodone) [address] [facility] Stop: 01/27/17 21:01 Last Admin: 07/28/16 21:42 Dose: 100 mg Laboratory Tests 07/28/16 07/28/16 07/28/16 09:26 16:05 22:04 Hgb Creatinine Troponin I 0.99 H* 12.62 H* 14.34 H* 07/29/16 07/29/16 04:52 04:52 Hgb 14.3 D Creatinine 1.09 Troponin I - Imaging and Cardiology Echo: report reviewed Cardiac cath: report reviewed - EKG Interpretation EKG results cardiology: other (Telemetry reviewed with average HR 72,sinus rhythm. Rare PVCs and PACS noted.) Consult Discharge Plan - Plan Referrals: Musa Johnston, PLANNING CONSULTANT [Advanced Practice Nurse] - (office will call patient at home with follow up appointment, do to office makes their own appointments) Aneta,Jameel D, DO [Primary Care Provider] - 07/31/16 1:30 pm Prescriptions: Nitroglycerin 0.4 mg SL Q5MIN PRN #10 tab.subl PRN Reason: Chest Pain Aspirin 81 mg PO DAILY #30 tab.chew Atorvastatin Calcium [Lipitor] 80 mg PO HS #30 tab Carvedilol [Coreg] 6.25 mg PO BIDWM #60 tablet Clopidogrel [Plavix] 75 mg PO DAILY #30 tablet
[2016-07-29] MEDS: Nicotine 14 MG PATCH.TD24 TD SCH (10:21)
[2016-07-29] MEDS: Gabapentin 400 MG CAPSULE PO SCH (10:23)
[2016-07-29 11:51] VITALS: BP 120/67
--- NOTE | 2016-07-29 12:59 | Electrocardiograph Report ---
[address] [address] Test Date: 2016-07-28 Pat Name: Andrew Jaramillo Department: 110 Room: 2N12 Gender: Retail Shift Supervisor: MADDY : 1975 Requested By: Ksenia Johnston Order Number: [id number] Reading MD: Vik Conklin MD Measurements Intervals [place] Rate: 60 P: 50 KS: 184 QRS: 58 QRSD: 101 T: 78 QT: 419 QTc: 421 Interpretive Statements SINUS RHYTHM Electronically Signed On 07-29-2016 12:57:55 EDT by Vik Conklin MD
== END 2016-07-29 12:50 | disposition home or self-care (01) ==
LOC: 2NENU → 2NNU 12:37
PROVIDERS: ADMIT Internal Medicine; ATTEND Internal Medicine